=== PATIENT | female | born 1990 | race Caucasian/White ===

== ENCOUNTER 2017-12-10 02:22 | Outpatient (CLI) | payer OTHER ==
[2017-12-10] MEDS ORDERED: LACTATED RINGER'S 1,000 ML IV (03:03)
== END 2017-12-10 03:45 | disposition left against medical advice (07) ==
LOC: OBT 02:22 → L-D 02:24 → OBT 03:45
DX: O76 Abnormality in fetal heart rate and rhythm complicating labor and delivery (principal); O26.893 Other specified pregnancy related conditions, third trimester; R10.9 Unspecified abdominal pain; M54.9 Dorsalgia, unspecified; R51 Headache; R50.9 Fever, unspecified; Z3A.35 35 weeks gestation of pregnancy
CPT/HCPCS: J7120